=== PATIENT | male | born 1995 | race African-American/Black ===

== ENCOUNTER 2019-12-09 11:45 | Emergency (ER) | payer OTHER, SELFPAY ==
--- NOTE | ~2019-12-09 | CT_ITS ---
EXAMINATION: CT brain wo con EXAM DATE: 12/09/2019 13:16 INDICATION: Psychosis, not feeling like himself. TECHNIQUE: Spiral CT of the head was performed without contrast. Axial, coronal and sagittal images were reviewed. The dose-length product (DLP) for this examination was 605.33 mGy-cm. The exposure w as tailored according to patient size, and iterative reconstruction (ASIR) was used as additional dos e reduction technique. There is no prior study for comparison. FINDINGS: There is no acute intraparenchymal hemorrhage. No evidence of intraparenchymal brain mass lesion. No evidence of acute infarction. There is no mass effect or midline shift. The ventricles are normal in size. There are no extra-axial collections. There are no acute calvarial fractures. T he orbits are unremarkable. Soft tissue is unremarkable. The visualized sinuses and mastoid air low ls are well aerated. IMPRESSION: 1. Normal head CT examination. Reviewed, dictated and finalized at location B. NICAL SERVICE REPRESENTATIVE
[2019-12-09 11:54] VITALS: BP 145/84; PULSE 59; RESP 16; TEMP 36.2; O2SAT 100
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
[2019-12-09 13:26] LABS: Basophils Percent Auto 0.6 % (0.2-1.2); Hematocrit 40.1 % (42.0-52.0); Hemoglobin 14.4 g/dL (14.0-18.0); Immature Granulocyte Absolute 0.03 K/mm3 (0.00-0.031); Immature Granulocyte Percent A 0.6 % (0-0.5); Lymphocytes Absolute Auto 1.11 K/mm3 (0.9-3.2); Lymphocytes Percent Auto 21.4 % (18.3-44.2); Mean Corpuscular HGB Conc 35.9 g/dl (32-36); Mean Corpuscular Hemoglobin 33.2 pg (26-34); Mean Corpuscular Volume 92.4 fl (80-100); Monocytes Absolute Auto 0.5 K/mm3 (0.1-0.6); Monocytes Percent Auto 9.6 % (2.6-8.5); Neutrophils Absolute Auto 3.5 K/mm3 (1.3-6.7); Neutrophils Percent Auto 67.8 % (45.5-73.1); Platelet Count Result 210 k/mm3 (150-375); Red Blood Count 4.34 M/mm3 (4.6-6.20); Red Cell Distribution Width 11.1 % (11.5-14.5); White Blood Count 5.2 K/mm3 (4.5-10.0)
[2019-12-09 13:42] LABS: Ethanol < 10 mg/dL (<10)
[2019-12-09 13:43] LABS: Alanine Aminotransferase 14 U/L (4-50); Albumin Level 4.6 g/dL (3.5-5.1); Alkaline Phosphatase 38 U/L (38-126); Aspartate Amino Transferase 23 U/L (17-59); Blood Urea Nitrogen 7 mg/dL (9-20); Calcium 9.3 mg/dL (8.4-10.2); Carbon Dioxide 24 mmol/L (22-30); Chloride 102 mmol/L (98-107); Estimated Glomerular Filt Rate > 60; Glucose 96 mg/dL (75-110); Potassium 3.4 mmol/L (3.4-5.0); Sodium 138 mmol/L (137-145)
[2019-12-09 14:13] LABS: Thyroid Stimulating Hormone 0.557 uIU/mL (0.465-4.680)
[2019-12-09 14:15] LABS: Add Urine Microscopic? YES; Appearance Urine Clear (Clear); Bacteria Urine Trace /hpf; Bilirubin Urine Negative (Negative); Blood Urine Negative (Negative); Color Urine Straw (Yellow); Glucose Urine UA Negative (Negative); Ketones Urine Trace mg/dL (Negative); Leukocyte Esterase Ur Negative LEU/UL (Negative); Mucus Urine Rare /lpf; Nitrate Urine Negative (Negative); Protein Urine Negative (Negative); RBC Urine 0-2 /hpf (0-2); Specific Grav Ur 1.008 (1.001-1.035); Squamous Epithelial Cell Urine Rare /hpf (Few); Urobilinogen Urine Negative mg/dL (<2.0); WBC Urine 0-3 /hpf
[2019-12-09 14:25] LABS: Amphetamine Screen Urine Negative (Negative); Barbiturate Screen Urine Negative (Negative); Benzodiazepines Screen Urine Negative (Negative); Cannabinoid Screen Urine Positive (Negative); Cocaine Screen Urine Negative (Negative); Methadone Screen Urine Negative (Negative); Opiate Screen Urine Negative (Negative); Phencyclidine Screen Urine Negative (Negative)
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
--- NOTE | 2019-12-09 15:46 | PC.NURSE ---
size worker here to evaluate pt. Pt agreed for voluntary placement for further evaluation and treatment. Pt family updated. Pt family hesitant on placement. Pt given sandwhich tray and soda.
--- NOTE | 2019-12-09 17:12 | PC.NURSE ---
spoke with [facility]. chart faxed to [phone]
--- NOTE | 2019-12-09 19:13 | PC.NURSE ---
[facility] contacted [facility]. states have not received chart. chart again faxed.
[2019-12-09 19:14] VITALS: BP 141/102; PULSE 78; RESP 16; O2SAT 98
--- NOTE | 2019-12-09 20:18 | PC.NURSE ---
Dina with [facility] called asking if patient was placed. I informed her that he had not, chart was faxed at 1710 to [facility], we hadn't heard anything as of yet. She indicated she will follow-up later with them, if not in the morning.
[2019-12-09] MEDS: LORAZEPAM 0.5 MG TABLET PO (20:35)
--- NOTE | 2019-12-09 21:16 | PC.NURSE ---
Addendum entered by Minerva Bah 12/09/19 22:58: Called [facility] for status...ETA approximately 20 minutes. Original Note: 2100: Called [facility] to transport patient to [facility]...2107: declined 2118: Called [facility] to transport patient to [place]....eta 2300. #[id number]
--- NOTE | 2019-12-09 23:47 | PC.NURSE ---
After exiting ED on stretcher with EMS, patient requested to speak to his father regarding placement. Patient believed he was going to [facility] in [place], not the [facility] in [place], [place]. Patient stated he did not want to stay [facility] [place] [facility]. Patient did not have a cell phone so he requested to use an ED phone. While speaking on the phone, patient stated come pick me up. Once patient hung up the phone, he ambulated out of ED with a steady gait through the ambulance bay without EMS. Patient returned to the ED to speak with CM Villa. Patient had spoken to his father and stated he was going to go home and his father would take him for follow up care in the morning and that the father felt safe with the patient [facility]. Patient was voluntary for admission, alert and oriented, and denied any SI or HI. Per ED charge nurse Ambar Lopez and EDP Daisy no further actions are needed. [facility] was notified patient is no longer coming via EMS.
== END 2019-12-09 23:27 | disposition short-term general hospital (02) ==
PROVIDERS: Emergency Medicine; Emergency Provider Emergency Medicine
DX: F23 Brief psychotic disorder (principal); F12.90 Cannabis use, unspecified, uncomplicated
CPT/HCPCS: 36415; 70450; 80053; 80307; 81001; 84443; 85025; 99284; A9270